=== PATIENT | female | born 1985 | race Caucasian/White ===

== ENCOUNTER 2020-09-25 03:59 | Inpatient (IN) ==
[2020-09-25] MEDS ORDERED: Famotidine 20 MG/2 ML VIAL IVP PRN (04:17)
[2020-09-25] MEDS ORDERED: Naloxone 0.4 MG/ML INJ IVP PRN (04:17)
[2020-09-25] MEDS ORDERED: Metoclopramide 10 MG/2 ML VIAL IVP PRN (04:17)
[2020-09-25] MEDS ORDERED: Azithromycin 500 MG in 0.9 % Sodium Chloride 250 ML IVPB ONE (04:17)
[2020-09-25] MEDS ORDERED: Lidocaine 1% 20 ML MDV ID PRN (04:17)
[2020-09-25] MEDS ORDERED: Ondansetron 4 MG/2 ML VIAL IVP PRN (04:17)
[2020-09-25] MEDS ORDERED: *HR* Nalbuphine 10 MG/ML AMPUL IV PRN (04:17)
[2020-09-25] MEDS ORDERED: Oxytocin 20 units/ LR 1000 mL 20 UNIT/1,000 ML BAG IVC SCH ×2 (04:30→15:58)
[2020-09-25 05:26] LABS: Basophils % 0.3 %; Eosinophils # 0.1 K/mcL (0.0-0.6); Eosinophils % 1.2 %; Hemoglobin 10.4 g/dL (11.5-15.4); Immature Granulocytes % 0.2 % (0-4); Lymphocytes # 2.2 K/mcL (0.6-4.6); Mean Corpuscular HGB Conc 30.6 g/dL (31.6-35.5); Mean Corpuscular Hemoglobin 22.7 pg (28.0-33.3); Mean Corpuscular Volume 74.2 fL (83.0-100.0); Mean Platelet Volume 11.6 fL (9.4-12.4); Monocytes # 0.8 K/mcL (0.0-1.3); Monocytes % 8.2 %; Neutrophils # 6.1 K/mcL (1.6-8.9); Platelet Count 219 K/mcL (140-400); Red Blood Count 4.58 M/mcL (3.82-4.97); Red Cell Distribution Width 14.3 % (11.5-14.5); Segmented Neutrophils % 66.1 %; White Blood Count 9.2 K/mcL (4.3-11.1)
[2020-09-25 05:29] LABS: Amphetamine Screen,Urine Negative ng/mL (Cutoff=1000); Barbiturate Screen,Urine Negative ng/mL (Cutoff=200); Benzodiazepines Screen,Urine Negative ng/mL (Cutoff=200); Cannabinoid Screen,Urine Negative ng/mL (Cutoff = 50); Cocaine Screen,Urine Negative ng/mL (Cutoff= 300); Opiate Screen,Urine Negative ng/mL (Cutoff=300); Phencyclidine Screen,Urine Negative ng/mL (Cutoff=25)
[2020-09-25] MEDS ORDERED: miSOPROStoL 25 MCG TABLET PO ONE (06:00)
[2020-09-25] MEDS ORDERED: EPHEDrine 50 MG/ML VIAL IVP PRN (07:55)
[2020-09-25] MEDS ORDERED: Epidural Premix (fent/bupiv) 110 ML EP SCH (08:00)
[2020-09-25] MEDS ORDERED: Famotidine 20 MG/2 ML VIAL IVP ONE (09:05)
[2020-09-25] MEDS: Ringers Solution, Lactated 1,000 ML IVC SCH ×2 (09:08→11:22)
[2020-09-25] MEDS ORDERED: *HR* FentaNYL (PF) 100 MCG/2 ML VIAL ONE (09:20)
[2020-09-25] MEDS ORDERED: Ropivacaine/PF 0.2% 20 ML VIAL ONE (09:20)
[2020-09-25] MEDS ORDERED: Oxytocin 20 units/ LR 1000 mL 20 UNIT/1,000 ML BAG IVC ONE (15:58)
[2020-09-25] MEDS ORDERED: Acetaminophen 325 MG TABLET PO PRN (15:58)
[2020-09-25] MEDS ORDERED: Measles/Mumps/Rubella Vacc 0.5 ML VIAL SQ PRN (15:58)
[2020-09-25] MEDS ORDERED: Rho Immune Globulin 1,500 UNIT SYRINGE IM PRN (15:58)
[2020-09-25] MEDS ORDERED: Ibuprofen 600 MG TABLET PO PRN (15:58)
[2020-09-25] MEDS ORDERED: Sennosides 8.6 MG TABLET PO PRN (15:58)
[2020-09-25] MEDS ORDERED: Lanolin 7 G OINT...G. TP PRN (18:15)
[2020-09-26 06:26] LABS: Basophils % 0.2 %; Eosinophils # 0.1 K/mcL (0.0-0.6); Eosinophils % 0.6 %; Hematocrit 28.1 % (35.3-44.9); Immature Granulocytes % 0.3 % (0-4); Lymphocytes # 1.7 K/mcL (0.6-4.6); Lymphocytes % 18.8 %; Mean Corpuscular HGB Conc 31.3 g/dL (31.6-35.5); Mean Corpuscular Hemoglobin 23.5 pg (28.0-33.3); Mean Corpuscular Volume 74.9 fL (83.0-100.0); Mean Platelet Volume 11.4 fL (9.4-12.4); Monocytes # 0.6 K/mcL (0.0-1.3); Neutrophils # 6.8 K/mcL (1.6-8.9); Platelet Count 164 K/mcL (140-400); Red Blood Count 3.75 M/mcL (3.82-4.97); Red Cell Distribution Width 14.4 % (11.5-14.5); Segmented Neutrophils % 74.1 %; White Blood Count 9.2 K/mcL (4.3-11.1)
[2020-09-26 06:28] LABS: Hemoglobin 8.8 g/dL (11.5-15.4)
[2020-09-26 07:51] VITALS: BP 104/72
[2020-09-26] MEDS ORDERED: PRENATAL VITS96 PO SCH (09:00)
[2020-09-26] MEDS ORDERED: Prenatal Vit/FA 1 EACH TABLET PO SCH (09:00)
[2020-09-26] MEDS ORDERED: [UNRECOGNIZED DRUG - OTHER] PO SCH (09:00)
[2020-09-26] MEDS ORDERED: IRON FUM PO SCH (09:00)
== END 2020-09-26 15:30 | disposition home or self-care (01) | DRG 560 ==
LOC: 1NENULAB 03:59 → 1NENUOBS 16:54
PROVIDERS: ADMIT Advanced Practice Midwife; ATTEND Student in an Organized Health Care Education/Training Program